=== PATIENT | female | born 1995 | race Caucasian/White ===

== ENCOUNTER 2017-04-29 11:12 | Inpatient (IN) ==
[2017-04-29] MEDS ORDERED: ONDANSETRON 4 MG/2 ML VIAL IV PRN (11:26)
[2017-04-29] MEDS ORDERED: OXYTOCIN/LR 20 UNIT/1,000 ML BAG IV SCH (11:30)
[2017-04-29] MEDS: LACTATED RINGERS 1,000 ML IV SCH ×3 (11:34→20:28)
[2017-04-29 11:57] LABS: Basophils % 0.3 % (0.0-0.8); Eosinophils % 0.1 % (0.00-10.9); Hematocrit 35.8 VOL% (35.7-47.0); Immature Granulocytes % 0.4 %; Immature Granulocytes Absolute 0.04 #; Lymphocytes # 1.8 10*3/uL (1.4-4.0); Lymphocytes % 16.5 % (21.3-54.2); Mean Corpuscular HGB Conc 33.5 GM/DL (32-36); Mean Corpuscular Hemoglobin 31 PG (27-34); Mean Platelet Volume 12.8 FL (9.6-12.0); Monocytes # 0.6 10*3/uL (0.11-0.8); Monocytes % 5.5 % (1.7-12.7); Neutrophils # 8.6 10*3/uL (1.4-7.4); Neutrophils % 77.2 % (38.7-73.9); Platelet Count 169 T/CUMM (130-400); Red Blood Count 3.89 MC/CUMM (3.8-5.5); Red Cell Distribution Width 12.9 % (9.3-17.3); White Blood Count 11.1 T/CUMM (4-12)
[2017-04-29 12:29] LABS: Albumin 2.4 G/DL (3.4-5.0); Bilirubin,Total 0.6 MG/DL (0.2-1.0); Calcium 8.6 MG/DL (8.5-10.1); Osmolality,Calculated 272.5 MOS/KG (273-304); Potassium 3.7 MMOL/L (3.5-5.1); Total Protein 6.9 G/DL (6.4-8.3); Uric Acid 7.2 MG/DL (2.6-6.0)
[2017-04-29] MEDS ORDERED: BUTORPHANOL 2 MG/ML VIAL IV PRN (17:03)
--- NOTE | 2017-04-29 17:05 | OB/GYN History & Physical ---
History of Present Illness Chief complaint: IUP @ 35.6 wks with elevated BP, contractions, H/A and epigastric pain History of present illness: Ms. Ivory is a 21 year old female primigravida with EDC 05/28/2017 her first trimester ultrasound estimated gestational age is 35.6 weeks gestation today. Her records are available reviewed, coherent, and up-to-date. She was sent from the clinic with complaints of epigastric pain, contractions, elevated blood pressures, with elevated blood pressures noted over the weekend. She also indicated that she has had epigastric pain and right upper quadrant pain. She indicated she is feeling the baby move. 1+ protein was noted on urine dipstick at clinic today. Her repeat blood pressures were noted to be 138/80 with initial blood pressure today being 150/100. During the course of her she did have first trimester bleeding that resolved she also had a placenta previa that resolved, she was sent to the hospital last week for elevated blood pressures and preeclampsia. At that time it was noted that the baby did have a 3 week growth lag of abdominal circumference with a 14 day total growth lag on ultrasound. It was noted on the ultrasound also that it was possible calcifications noted on the placenta. At that time I did consult with Dr. Carroll secondary to asymmetrical IUGR, elevated blood pressures, dipstick proteinuria, complains of headache and epigastric pain for patient to be admitted for preeclampsia. He agree with the plan of care indicated to perform contraction stress test and serial blood pressures and monitor for labor. Upon admission to hospital, [facility] labs were obtained with an elevated uric acid of greater than 7 and an elevated fibrinogen with a drop in platelets from last week at 203,000 to 169,000. Home Medications Medication Instructions Recorded Confirmed Type Multivitamin () [ 1 tablet PO DAILY 04/23/17 04/29/17 History Vitamin] Allergies Allergy/AdvReac Type Severity Reaction Status Date / Time No Known Allergies Allergy Verified 04/23/17 17:25 12 point system: reviewed and no additional remarkable complaints except as stated Medical,Surgical,& Family Hx - Medical History Other: History of: Miscellaneous Medical Problems (obesity) - Surgical History Surgical History: noncontributory - Family History Family History: Reports;: Family Diabetes (FATHER) Denies;: Family Anesthesia Reaction, Family Cancer, Family Heart Disease, Family Hematology, Family Hypertension, Family Psychiatric Problems, Family Stroke, Additional Family History - Social History Smoking Status: Never smoker Frequency of Alcohol Use: None Type of Drug Use: None Marital Status: Lives With:: Spouse Functional capacity: independent ambulation 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 - Constitutional Vitals: Vital Signs Temp Pulse Resp BP 04/29/17 16:00 98.5 F 81 20 125/75 General appearance: no acute distress, over weight - Antepartum / Post Antepartum Exam Cervix - Dilatation: 4 cm Effacement: 50% Station: -3 Rupture: Intact Presentation: Vertex Heart Rate: 140s with spontaneous accelerations no decelerations noted [place]: Irregular/40-50 seconds/mild Breast: bilateral: normal Abdomen obstetrics: Present: bowel sounds normal Vagina: Present: normal moisture Uterus exam: Present: normal size Anus/Rectum: Present: normal perianal skin - Head Head exam: Present: normal inspection - Eye Eye exam: Present: EOMI - ENT ENT exam: Present: normal exam, normal external ear exam - Neck Neck exam: Present: normal inspection - Respiratory Respiratory exam: Present: clear to auscultation bilaterally Assessment and Plan (1) Asymmetric IUGR affecting , antepartum Status: Acute Current Visit: Yes (2) induced hypertension, antepartum Status: Acute Current Visit: Yes (3) Proteinuria Status: Acute Current Visit: Yes (4) Headache Status: Acute Current Visit: Yes (5) Epigastric abdominal pain Status: Acute Current Visit: Yes (6) Pre-eclampsia Status: Acute Current Visit: Yes Results - Labs CBC & BMP: 04/29/17 11:42 04/29/17 11:42 Labs: Laboratory Tests 04/29/17 04/29/17 04/29/17 11:42 11:42 11:42 WBC 11.1 RBC 3.89 Hgb 12.0 Hct 35.8 MCV 92.0 MCH 31 MCHC 33.5 RDW 12.9 Plt Count 169 MPV 12.8 H Neut % (Auto) 77.2 H Lymph % (Auto) 16.5 L [place] % (Auto) 5.5 Eos % (Auto) 0.1 Baso % (Auto) 0.3 Neut # (Auto) 8.6 H Lymph # (Auto) 1.8 [place] # (Auto) 0.6 Eos # (Auto) 0.0 Baso # (Auto) 0.0 Immature Gran % 0.4 Nucleated RBC % 0.0 Immature Gran # 0.04 Nucleated RBCs # 0.00 Immature Plt Fraction 0.0 Fibrinogen Sodium 139 Potassium 3.7 Chloride 106 Carbon Dioxide 23 Anion Gap 13.7 BUN 4 L Creatinine 0.50 L GFR Calculation 155 BUN/Creatinine Ratio 8.00 Glucose 72 L Calculated Osmolality 272.5 L Uric Acid 7.2 H Calcium 8.6 Total Bilirubin 0.60 AST 17 ALT 23 Alkaline Phosphatase 107 Total Protein 6.9 Albumin 2.4 L Globulin 4.5 H Albumin/Globulin Ratio 0.5 L Amylase Lipase Blood Type O POSITIVE Antibody Screen Negative 04/29/17 04/29/17 11:42 11:42 WBC RBC Hgb Hct MCV MCH MCHC RDW Plt Count MPV Neut % (Auto) Lymph % (Auto) [place] % (Auto) Eos % (Auto) Baso % (Auto) Neut # (Auto) Lymph # (Auto) [place] # (Auto) Eos # (Auto) Baso # (Auto) Immature Gran % Nucleated RBC % Immature Gran # Nucleated RBCs # Immature Plt Fraction Fibrinogen 401 H Sodium Potassium Chloride Carbon Dioxide Anion Gap BUN Creatinine GFR Calculation BUN/Creatinine Ratio Glucose Calculated Osmolality Uric Acid Calcium Total Bilirubin AST ALT Alkaline Phosphatase Total Protein Albumin Globulin Albumin/Globulin Ratio Amylase 54 Lipase 143.0 Blood Type Antibody Screen Quality Measures - VTE Contraindication to Pharmacological VTE Prophylaxis: Continuous Epidural Infusion
[2017-04-29] MEDS ORDERED: hydrOXYzine HCL 25 MG/1 ML VIAL IM PRN (19:18)
[2017-04-29] MEDS ORDERED: PROMETHAZINE 25 MG/1 ML VIAL IM ONE (19:18)
[2017-04-29] MEDS ORDERED: ePHEDrine 50 MG/ML AMP IV PRN (19:18)
[2017-04-29] MEDS ORDERED: fentaNYL 2 MCG/ROPIV 0.2% EPID 150 ML EPIDURAL SCH (19:18)
[2017-04-29] MEDS ORDERED: diphenhydrAMINE 50 MG/1 ML VIAL IV PRN ×2 (19:18)
[2017-04-29] MEDS ORDERED: FAMOTIDINE 20 MG/2 ML VIAL IV ONE (19:20)
[2017-04-29] MEDS ORDERED: CITRIC ACID/SODIUM CITRATE 30 ML UDCUP PO ONE (19:20)
[2017-04-30] MEDS ORDERED: HYDROCORTISONE 2.5% RECTAL CREAM 30 GM TUBE TOP PRN (05:23)
[2017-04-30] MEDS ORDERED: OXYTOCIN/LR 20 UNIT/1,000 ML BAG IV ONE (05:23)
[2017-04-30] MEDS ORDERED: RHO(D) IMMUNE GLOBULIN 300 MCG SYRINGE IM ONE (05:23)
[2017-04-30] MEDS ORDERED: ACETAMINOPHEN 325 MG TABLET PO PRN (05:23)
[2017-04-30] MEDS ORDERED: MEASLES/MUMPS/RUBELLA VACCINE 0.5 ML VIAL SUBCUT ONE (05:23)
[2017-04-30] MEDS ORDERED: oxyCODONE/ACETAMINOPHEN 5-325 MG TABLET PO PRN ×2 (05:23)
[2017-04-30] MEDS ORDERED: ONDANSETRON 4 MG/2 ML VIAL IV PRN (05:23)
[2017-04-30] MEDS ORDERED: BENZOCAINE 20%/MENTHOL 0.5% SPRAY 56 GM CAN TOP PRN (05:23)
[2017-04-30] MEDS ORDERED: WITCH HAZEL PADS 100/JAR TOP PRN (05:23)
[2017-04-30] MEDS ORDERED: DIPH/TET/ACEL PERT BOOSTER VACCINE 0.5 ML VIAL IM ONE (05:23)
[2017-04-30] MEDS ORDERED: BISACODYL 10 MG SUPP RECTAL PRN (05:23)
[2017-04-30] MEDS ORDERED: LANOLIN 50% CREAM 0.3 OZ TUBE TOP PRN (05:23)
[2017-04-30 05:28] LABS: Cord Venous Blood HCO3 24.5 MMOL/L; Cord Venous Blood PCO2 43.9 MMHG; Cord Venous Blood PO2 21.5 MMHG
--- NOTE | 2017-04-30 05:29 | Operative Note ---
Date of procedure: 04/30/17 Pre-op diagnosis: 35 weeks, asymetric IUGR, PIH Post-op diagnosis: same Procedure: Spontaneous vaginal delivery The patient was prepped and drapped in the dorsal lithotomy position. Expulsive efforts were encouraged until the head was on the perineum. The perineum was supported with the left hand while the delivery of the head controlled by the right hand. The naseopharynx was suctioned with a bulb syringe as soon as the head delivered. The head was directed downward and the anterior shoulder delivered. The head was lifted and the posterior shoulder delivered. The was delivered to the hips and held in place while the umbilical cord was clamped and cut. The remainder of the was delivered and then transferred to the warmer. Cord blood was obtained and the placenta allowed to seperated spontaneously. The placenta was then delivered Katie funes. An intrauterine exam was done and pitocin administered. The cervix, vagina and perineum were examined and no lacerations found. She was returned to the supine position and her recovery begun. Anesthesia: epidural Surgeon / Physician: Dwain Carroll Estimated blood loss: other (100 cc) Specimens: other (placenta) Condition: stable Disposition: post procedure unit Results - Labs CBC & BMP: 04/29/17 11:42 04/29/17 11:42 Discharge Plan - Discharge Medications No Action Multivitamin () [ Vitamin] 1 tablet PO DAILY - Follow Up or Referral - Forms/Instructions
[2017-04-30 05:31] LABS: Cord Arterial Blood HCO3 26.1 MMOL/L
[2017-04-30] MEDS: LACTATED RINGERS 1,000 ML IV SCH (06:19)
--- NOTE | 2017-04-30 06:21 | Anesthesia Post-Op ---
Anesthesia Post OP - Post Ansesthetic Evaluation Patient seen in post op: Yes Resp: within normal limits CV: within normal limits Mental: within normal limits Temp: within normal limits [id number]: within normal limits Nausea and Vomiting: within normal limits Pain: within normal limits
[2017-04-30] MEDS: DOCUSATE SODIUM 100 MG CAPSULE PO SCH ×2 (09:11→20:02)
[2017-04-30] MEDS: IBUPROFEN 800 MG TABLET PO PRN ×2 (09:37→20:02)
[2017-05-01 06:10] LABS: Basophils % 0.3 % (0.0-0.8); Eosinophils # 0.1 10*3/uL (0.0-0.87); Eosinophils % 0.5 % (0.00-10.9); Hematocrit 30.5 VOL% (35.7-47.0); Hemoglobin 10.1 GM/DL (12.0-16.0); Immature Granulocytes % 0.4 %; Immature Granulocytes Absolute 0.05 #; Lymphocytes % 26.2 % (21.3-54.2); Mean Corpuscular HGB Conc 33.1 GM/DL (32-36); Mean Corpuscular Hemoglobin 31 PG (27-34); Mean Corpuscular Volume 93.6 FL (87-102); Mean Platelet Volume 12.6 FL (9.6-12.0); Monocytes # 0.7 10*3/uL (0.11-0.8); Monocytes % 5.8 % (1.7-12.7); Neutrophils # 7.5 10*3/uL (1.4-7.4); Neutrophils % 66.8 % (38.7-73.9); Platelet Count 135 T/CUMM (130-400); Red Blood Count 3.26 MC/CUMM (3.8-5.5); Red Cell Distribution Width 13.4 % (9.3-17.3); White Blood Count 11.3 T/CUMM (4-12)
[2017-05-01] MEDS: IBUPROFEN 800 MG TABLET PO PRN ×2 (07:22→19:31)
[2017-05-01] MEDS: DOCUSATE SODIUM 100 MG CAPSULE PO SCH ×3 (08:22→20:16)
--- NOTE | 2017-05-01 14:23 | OB/GYN Progress Note ---
Assessment and Plan (1) Asymmetric IUGR affecting , antepartum Status: Resolved Current Visit: Yes (2) induced hypertension, antepartum Status: Resolved Current Visit: Yes (3) Proteinuria Status: Resolved Current Visit: Yes (4) Headache Status: Resolved Current Visit: Yes (5) Epigastric abdominal pain Status: Resolved Current Visit: Yes (6) Pre-eclampsia Status: Resolved Current Visit: Yes (7) (normal spontaneous vaginal delivery) Status: Acute Current Visit: Yes (8) Anemia Status: Acute Current Visit: Yes Qualifiers: Anemia type: unspecified type Qualified Code(s): D64.9 - Anemia, unspecified LITIGATION EXAMINER - PN: Subj Interval history: Breast pumping. Denies any problems presently. Desires control pills for control management. A: Day 1, Breast pumping, Anemia, Stable P: DC home tomorrow if stable. Continue routine care. Questions answered to desired level of satisfaction. Exam LITIGATION EXAMINER - Constitutional Vitals: Vital Signs Temp Pulse Resp BP Pulse Ox 05/01/17 11:54 97.5 F L 76 20 126/85 98 05/01/17 07:25 97.4 F L 68 20 133/83 98 05/01/17 05:00 18 05/01/17 04:00 97.6 F 71 18 126/70 99 05/01/17 03:00 18 05/01/17 02:00 18 05/01/17 01:00 18 05/01/17 00:00 97.8 F 70 18 126/91 99 04/30/17 20:00 97.1 F L 89 20 142/79 99 04/30/17 16:00 97.5 F L 69 20 131/86 99 General appearance: no acute distress - Antepartum / Post Post Exam Breast: bilateral: normal Abdomen obstetrics: Present: bowel sounds normal Vagina: Present: normal moisture Uterus exam: Present: enlarged (firm, midline 2 below umbilicus) Anus/Rectum: Present: normal perianal skin - Head Head exam: Present: normal inspection, normocephalic - Eye Eye exam: Present: EOMI - ENT ENT exam: Present: normal exam, normal external ear exam - Neck Neck exam: Present: normal inspection - Respiratory Respiratory exam: Present: clear to auscultation bilaterally - Cardiovascular Cardiovascular exam: Present: regular rate and rhythm - Extremities Exam Extremities exam: Present: normal inspection, normal capillary refill, full ROM - Back Exam Back exam: Present: normal inspection - Neurological Exam Neurological exam: Present: alert, oriented X3, normal gait - Psychiatric Psychiatric exam: Present: normal affect, normal mood - Skin Skin exam: Present: normal color, warm, dry Results - Labs CBC & BMP: 05/01/17 05:54 04/29/17 11:42 Labs: Laboratory Tests 04/29/17 04/29/17 04/29/17 11:42 11:42 11:42 WBC 11.1 RBC 3.89 Hgb 12.0 Hct 35.8 MCV 92.0 MCH 31 MCHC 33.5 RDW 12.9 Plt Count 169 MPV 12.8 H Neut % (Auto) 77.2 H Lymph % (Auto) 16.5 L [place] % (Auto) 5.5 Eos % (Auto) 0.1 Baso % (Auto) 0.3 Neut # (Auto) 8.6 H Lymph # (Auto) 1.8 [place] # (Auto) 0.6 Eos # (Auto) 0.0 Baso # (Auto) 0.0 Immature Gran % 0.4 Nucleated RBC % 0.0 Immature Gran # 0.04 Nucleated RBCs # 0.00 Immature Plt Fraction 0.0 Fibrinogen Cord ABG pH Cord ABG pCO2 Cord ABG pO2 Cord ABG HCO3 Cord ABG Total CO2 Cord ABG Base Excess Cord VBG pH Cord VBG pCO2 Cord VBG pO2 Cord VBG HCO3 Cord VBG Total CO2 Cord VBG Base Excess Sodium 139 Potassium 3.7 Chloride 106 Carbon Dioxide 23 Anion Gap 13.7 BUN 4 L Creatinine 0.50 L GFR Calculation 155 BUN/Creatinine Ratio 8.00 Glucose 72 L Calculated Osmolality 272.5 L Uric Acid 7.2 H Calcium 8.6 Total Bilirubin 0.60 AST 17 ALT 23 Alkaline Phosphatase 107 Total Protein 6.9 Albumin 2.4 L Globulin 4.5 H Albumin/Globulin Ratio 0.5 L Amylase Lipase Blood Type O POSITIVE Antibody Screen Negative 04/29/17 04/29/17 04/30/17 11:42 11:42 05:05 WBC RBC Hgb Hct MCV MCH MCHC RDW Plt Count MPV Neut % (Auto) Lymph % (Auto) [place] % (Auto) Eos % (Auto) Baso % (Auto) Neut # (Auto) Lymph # (Auto) [place] # (Auto) Eos # (Auto) Baso # (Auto) Immature Gran % Nucleated RBC % Immature Gran # Nucleated RBCs # Immature Plt Fraction Fibrinogen 401 H Cord ABG pH 7.260 Cord ABG pCO2 59.6 Cord ABG pO2 16.5 Cord ABG HCO3 26.1 Cord ABG Total CO2 28.0 Cord ABG Base Excess -2.3 Cord VBG pH Cord VBG pCO2 Cord VBG pO2 Cord VBG HCO3 Cord VBG Total CO2 Cord VBG Base Excess Sodium Potassium Chloride Carbon Dioxide Anion Gap BUN Creatinine GFR Calculation BUN/Creatinine Ratio Glucose Calculated Osmolality Uric Acid Calcium Total Bilirubin AST ALT Alkaline Phosphatase Total Protein Albumin Globulin Albumin/Globulin Ratio Amylase 54 Lipase 143.0 Blood Type Antibody Screen 04/30/17 05/01/17 05:05 05:54 WBC 11.3 RBC 3.26 L Hgb 10.1 L Hct 30.5 L MCV 93.6 MCH 31 MCHC 33.1 RDW 13.4 Plt Count 135 D MPV 12.6 H Neut % (Auto) 66.8 Lymph % (Auto) 26.2 [place] % (Auto) 5.8 Eos % (Auto) 0.5 Baso % (Auto) 0.3 Neut # (Auto) 7.5 H Lymph # (Auto) 3.0 [place] # (Auto) 0.7 Eos # (Auto) 0.1 Baso # (Auto) 0.0 Immature Gran % 0.4 Nucleated RBC % 0.0 Immature Gran # 0.05 Nucleated RBCs # 0.00 Immature Plt Fraction 0.0 Fibrinogen Cord ABG pH Cord ABG pCO2 Cord ABG pO2 Cord ABG HCO3 Cord ABG Total CO2 Cord ABG Base Excess Cord VBG pH 7.365 Cord VBG pCO2 43.9 Cord VBG pO2 21.5 Cord VBG HCO3 24.5 Cord VBG Total CO2 25.9 Cord VBG Base Excess -1.1 Sodium Potassium Chloride Carbon Dioxide Anion Gap BUN Creatinine GFR Calculation BUN/Creatinine Ratio Glucose Calculated Osmolality Uric Acid Calcium Total Bilirubin AST ALT Alkaline Phosphatase Total Protein Albumin Globulin Albumin/Globulin Ratio Amylase Lipase Blood Type Antibody Screen
--- NOTE | 2017-05-01 14:32 | Discharge Summary ---
Hospital Course - Hospital Course Hospital Course: Patient is a 21-year-old now 1 para 1 day presented at 35.6 weeks gestation for management of preeclampsia. She was induced with Cytotec and proceeded to deliver vaginally per Dr. Carroll a 4 lbs. 12 oz. male at 2155 g. Patient did have an epidural anesthetic. She did have an intact perineum. She is breast pumping presently. Patient has been stable. She desires control pills for control method of choice. She is being discharged home. Diagnosis - Discharge Diagnosis (1) Asymmetric IUGR affecting , antepartum Status: Resolved (2) induced hypertension, antepartum Status: Resolved (3) Proteinuria Status: Resolved (4) Headache Status: Resolved (5) Epigastric abdominal pain Status: Resolved (6) Pre-eclampsia Status: Resolved (7) (normal spontaneous vaginal delivery) Status: Resolved (8) Anemia Status: Acute Specialty Discharge - Follow Up or Referrals Follow up with: Dwain Carroll DO [Physician] - 05/13/17 10:10 am (Follow with Addis Govea in 2 weeks) Discharge Plan - Discharge Data Disposition: Disch To Home/Self Care Condition at Discharge: Stable Discharge Diet: advance to your usual diet Activity: resume usual activities as tolerated Hygiene: may shower Weight Bearing at Discharge: full weight bearing Driving: not for (2 weeks) Contact your physician if you experience:: fever over 101, Difficulty voiding, Redness or swelling, Nausea/Vomiting, Shortness of breath, Bleeding, pain uncontrolled by pain medications - Discharge Medications New Ferrous Sulfate Tab [Feosol Original Tab] 325 mg PO TID #90 tablet Ibuprofen 800 mg PO Q8HR PRN #90 tablet PRN Reason: mild to moderate pain No Action Multivitamin () [ Vitamin] 1 tablet PO DAILY - Follow Up or Referral Follow Up: Dwain Carroll DO [Physician] - 05/13/17 10:10 am (Follow with Addis Govea in 2 weeks) - Forms/Instructions Instructions: Depression (GEN), Perineal Care (DC), Vaginal Delivery (DC), Bleeding (DC) Exam - Constitutional Vitals: Period Temp Pulse Resp BP Sys/Swift Pulse Ox Last 24 Hr 97.1 F-97.8 F 68-89 18-20 126-142/70-91 98-99 Vital Signs Temp Pulse Resp BP Pulse Ox 98.0 F 77 20 138/81 97 05/02/17 08:00 05/02/17 08:00 05/02/17 08:00 05/02/17 08:00 05/02/17 08:00 General appearance: no acute distress - Head Head exam: Present: normal inspection - Eye Eye exam: Present: EOMI - ENT ENT exam: Present: normal exam, normal external ear exam - Neck Neck exam: Present: normal inspection - Respiratory Respiratory exam: Present: clear to auscultation bilaterally - Cardiovascular Cardiovascular exam: Present: regular rate and rhythm - GI/Abdominal GI/Abdominal exam: Present: normal bowel sounds (uterus firm, midline, 4 FB below umbilicus, perineum intact, minimal rubra noted on pad) - Extremities Exam Extremities exam: Present: normal inspection, normal capillary refill, full ROM - Back Exam Back exam: Present: normal inspection - Neurological Exam Neurological exam: Present: alert, oriented X3, normal gait - Psychiatric Psychiatric exam: Present: normal affect, normal mood - Skin Skin exam: Present: normal color, warm, dry Discharge Results Procedures and tests throughout hospitalization: Laboratory Tests 04/29/17 04/29/17 04/29/17 11:42 11:42 11:42 WBC 11.1 RBC 3.89 Hgb 12.0 Hct 35.8 MCV 92.0 MCH 31 MCHC 33.5 RDW 12.9 Plt Count 169 MPV 12.8 H Neut % (Auto) 77.2 H Lymph % (Auto) 16.5 L [place] % (Auto) 5.5 Eos % (Auto) 0.1 Baso % (Auto) 0.3 Neut # (Auto) 8.6 H Lymph # (Auto) 1.8 [place] # (Auto) 0.6 Eos # (Auto) 0.0 Baso # (Auto) 0.0 Immature Gran % 0.4 Nucleated RBC % 0.0 Immature Gran # 0.04 Nucleated RBCs # 0.00 Immature Plt Fraction 0.0 Fibrinogen Cord ABG pH Cord ABG pCO2 Cord ABG pO2 Cord ABG HCO3 Cord ABG Total CO2 Cord ABG Base Excess Cord VBG pH Cord VBG pCO2 Cord VBG pO2 Cord VBG HCO3 Cord VBG Total CO2 Cord VBG Base Excess Sodium 139 Potassium 3.7 Chloride 106 Carbon Dioxide 23 Anion Gap 13.7 BUN 4 L Creatinine 0.50 L GFR Calculation 155 BUN/Creatinine Ratio 8.00 Glucose 72 L Calculated Osmolality 272.5 L Uric Acid 7.2 H Calcium 8.6 Total Bilirubin 0.60 AST 17 ALT 23 Alkaline Phosphatase 107 Total Protein 6.9 Albumin 2.4 L Globulin 4.5 H Albumin/Globulin Ratio 0.5 L Amylase Lipase Blood Type O POSITIVE Antibody Screen Negative 04/29/17 04/29/17 04/30/17 11:42 11:42 05:05 WBC RBC Hgb Hct MCV MCH MCHC RDW Plt Count MPV Neut % (Auto) Lymph % (Auto) [place] % (Auto) Eos % (Auto) Baso % (Auto) Neut # (Auto) Lymph # (Auto) [place] # (Auto) Eos # (Auto) Baso # (Auto) Immature Gran % Nucleated RBC % Immature Gran # Nucleated RBCs # Immature Plt Fraction Fibrinogen 401 H Cord ABG pH 7.260 Cord ABG pCO2 59.6 Cord ABG pO2 16.5 Cord ABG HCO3 26.1 Cord ABG Total CO2 28.0 Cord ABG Base Excess -2.3 Cord VBG pH Cord VBG pCO2 Cord VBG pO2 Cord VBG HCO3 Cord VBG Total CO2 Cord VBG Base Excess Sodium Potassium Chloride Carbon Dioxide Anion Gap BUN Creatinine GFR Calculation BUN/Creatinine Ratio Glucose Calculated Osmolality Uric Acid Calcium Total Bilirubin AST ALT Alkaline Phosphatase Total Protein Albumin Globulin Albumin/Globulin Ratio Amylase 54 Lipase 143.0 Blood Type Antibody Screen 04/30/17 05/01/17 05:05 05:54 WBC 11.3 RBC 3.26 L Hgb 10.1 L Hct 30.5 L MCV 93.6 MCH 31 MCHC 33.1 RDW 13.4 Plt Count 135 D MPV 12.6 H Neut % (Auto) 66.8 Lymph % (Auto) 26.2 [place] % (Auto) 5.8 Eos % (Auto) 0.5 Baso % (Auto) 0.3 Neut # (Auto) 7.5 H Lymph # (Auto) 3.0 [place] # (Auto) 0.7 Eos # (Auto) 0.1 Baso # (Auto) 0.0 Immature Gran % 0.4 Nucleated RBC % 0.0 Immature Gran # 0.05 Nucleated RBCs # 0.00 Immature Plt Fraction 0.0 Fibrinogen Cord ABG pH Cord ABG pCO2 Cord ABG pO2 Cord ABG HCO3 Cord ABG Total CO2 Cord ABG Base Excess Cord VBG pH 7.365 Cord VBG pCO2 43.9 Cord VBG pO2 21.5 Cord VBG HCO3 24.5 Cord VBG Total CO2 25.9 Cord VBG Base Excess -1.1 Sodium Potassium Chloride Carbon Dioxide Anion Gap BUN Creatinine GFR Calculation BUN/Creatinine Ratio Glucose Calculated Osmolality Uric Acid Calcium Total Bilirubin AST ALT Alkaline Phosphatase Total Protein Albumin Globulin Albumin/Globulin Ratio Amylase Lipase Blood Type Antibody Screen Labs on day of discharge: Labs from last 24 hours 05/01/17 05:54 WBC 11.3 RBC 3.26 L Hgb 10.1 L Hct 30.5 L MCV 93.6 MCH 31 MCHC 33.1 RDW 13.4 Plt Count 135 D MPV 12.6 H Neut % (Auto) 66.8 Lymph % (Auto) 26.2 [place] % (Auto) 5.8 Eos % (Auto) 0.5 Baso % (Auto) 0.3 Neut # (Auto) 7.5 H Lymph # (Auto) 3.0 [place] # (Auto) 0.7 Eos # (Auto) 0.1 Baso # (Auto) 0.0 Immature Gran % 0.4 Nucleated RBC % 0.0 Immature Gran # 0.05 Nucleated RBCs # 0.00 Immature Plt Fraction 0.0 DS: Provider Date of admission: 04/29/17 11:26 Primary care physician: . No PCP Attending physician on admission: Dwain Carroll DO Consults: 04/29/17 11:26 Consult to Anesthesiology [CONS] Routine Consulting Provider: Reason for Anesthesiology: Epidural Consult Comment: Epidural for pain managment 04/30/17 05:23 Consult to Diamond Grader [CONS] Routine Consult Diamond Grader: Breast Feeding Discharging clinician: BRANDI Edmonds
[2017-05-02 08:52] VITALS: BP 138/81
--- NOTE | 2017-05-05 12:20 | Pathology Report from [facility] ---
[facility] ACCESSION # : [id number] PATIENT NAME : Jackie Ivory ORDERING DR : BREE SAXENA DO CLINICAL HX: G1 pre term delivery at 36 weeks gestation - IUGR and PIH POST-OP DX: Same SPECIMEN INFO: Placenta GROSS DESCRIPTION: Received fresh labeled with the patients name and consists of a 307 gram placenta which measures 18.1 x 16.2 cm x up to 2.4 cm. The membranes are pink-kasper and translucent with some clotted blood present. The umbilical cord is centrally inserted, contains three vessels and measures 21.6 cm. The surface is dark blue-torres with areas of peripheral subchorionic fibrin present. The maternal surface is hemorrhagic with moderately disrupted cotyledons and clotted blood with a central area of fibrin present measuring up to 3.0 cm. No gross abnormalities on sectioning. Sections submitted: A membranes and cord, B and maternal surfaces. DIAGNOSIS FOR JACKIE IVORY: PLACENTA, 36 WEEK GESTATIONAL AGE, VAGINAL DELIVERY: Slightly immature placenta, 307 gms trimmed weight. Placental infarct. Trivascular umbilical cord, 21.6 cm in length. COLLECTED DATE: 05/02/2017 [facility] REPORT DATE: 05/05/2017 ELECTRONICALLY SIGNED BY: Mildred Barnett M.D. 05/05/2017 - 10:27:51 JAC
== END 2017-05-02 13:30 | disposition home or self-care (01) | DRG 775 ==
LOC: N.LDOUT 11:12 → N.LD 11:13 → N.OB 04-30 08:25
PROVIDERS: ADMIT Obstetrics & Gynecology; ATTEND Obstetrics & Gynecology